=== PATIENT | female | born 1940 | race Caucasian/White ===

== ENCOUNTER 2018-08-19 14:11 | Inpatient (IN) | payer MEDICARE, OTHER ==
[2018-08-19 15:43] LABS: BASOPHILS 0.3 % (0-2); EOSINOPHILS 1.9 % (0-7); HEMATOCRIT 36.5 % (36.0-48.0); HEMOGLOBIN 12.3 g/dL (12-16); IMMATURE GRANULOCYTES 0.3 % (0-5); LYMPHOCYTES 16.1 % (15-50); MCH 32.4 pg (26.0-34.0); MCHC 33.7 g/dL (31.0-37.0); MCV 96.1 fL (80.0-100.0); MEAN PLATELET VOLUME 10.4 fL (7.4-10.4); MONOCYTES 5.9 % (2-11); NEUTROPHILS 75.5 % (40-80); RDW 12.2 % (11.5-14.5); WBC 10.4 10x3/uL (4.8-10.8)
[2018-08-19 15:51] LABS: PLATELET COUNT 213 10x3/uL (130-400)
[2018-08-19 16:05] LABS: APTT 28.1 SECONDS (22.8-39.4); INR 1.08 (0.85-1.17); PROTIME 13.5 SECONDS (11.6-15.0)
[2018-08-19 16:06] LABS: ALBUMIN 3.5 g/dL (3.4-5.0); ANION GAP 12.1 mmol/L (8-16); BILIRUBIN - TOTAL 0.37 mg/dL (0.2-1.3); CALCIUM 8.6 mg/dL (8.5-10.1); CARBON DIOXIDE 27.8 mmol/L (21.0-32.0); CREATININE - SERUM 0.8 mg/dL (0.6-1.3); POTASSIUM - SERUM 3.9 mmol/L (3.5-5.1); PROTEIN - SERUM 7.2 g/dL (6.4-8.2)
--- NOTE | 2018-08-19 17:30 | MORECARE ---
CASE MANAGEMENT DISCHARGE SUMMARY PATIENT: JASMINE MANLEY UNIT: [id number] ADM DATE: 08/19/18 AGE: 78 : 39 SEX: F ROOM/BED: D.2212 AUTHOR: KATHLEEN REEVES PHYSICIAN: REFERRING PHYSICIAN: SARA PEREZ MD DATE OF SERVICE: 08/19/18 Discharge Plan Patient Name: JASMINE MANLEY Facility: [facility]:[place] : 1940 Planned Disposition: Home Anticipated Discharge Date: 08/23/18 Discharge Date: Expected LOS: 4 Initial Reviewer: [email or web address] Initial Review Date: 08/19/2018 Generated: 08/19/18 6:29 pm DCP- Discharge Planning Updated by [email or web address]: Allyssa Mcnulty on 08/19/18 4:[address] Patient Name: JASMINE MANLEY Admission Status: ER Accout number: [id number] Admission Date: 08-19-2018 : 1940 Admission Diagnosis: Attending: SARA PEREZ Current LOS: 1 Anticipated DC Date: 08-23-2018 Planned Disposition: Home Primary Insurance: MEDICARE A & B Discharge Planning Comments: CM met with patient and her friend Kirsty to complete initial dc planning assessment. CM educated patient on the CM role and verbal consent given by patient to complete assessment. Patient lives at home and reports she is independent in her care. She reports her sister lives with her and her sister requires 24/7 caregivers. She also has PT that comes and works with her sister. At discharge patient plans to return home if she is able and feels this is a safe discharge. She stated she may need PT but she will see how she does post op. She also does not have any assisted devises for ambulation and may require a walker at dc. CM discussed availability of home health, rehab services, and medical equipment. Patient unsure of known discharge needs at this time. CM will continue to follow and will assist as needed with dc plans/needs. Burial Needs Salesperson: Allyssa Mcnulty RN, [facility] DCPIA - Discharge Planning Initial Assessment Updated by [email or web address]: Allyssa Mcnulty on 08/19/18 5:24 pm * Is the patient Alert and Oriented? Yes * PCP Dr. Perez * Pharmacy [facility] on [facility] * Preadmission Environment Home with Family * ADLs Independent * Equipment None * List name and contact numbers for known caregivers / representatives who currently or will assist patient after discharge: Kirsty Thurman - [place] - [phone] * Verbal permission to speak to the caregivers and representatives has been obtained from the patient. Yes * Community resources currently utilized None * Additional services required to return to the preadmission environment? Yes * Can the patient safely return to the preadmission environment? Yes * Has this patient been hospitalized within the prior 30 days at any hospital? No Patient Name: JASMINE MANLEY Page [id number] at 1730 All edits/amendments must be made on the electronic document DICTATION DATE: 08/19/181728 HAIRSPRING II INSPECTOR: ERMA 08/19/181728 RPT#: [id number] DC DATE: STATUS: ADM IN [facility] [address] [place] [address] END OF REPORT
[2018-08-19 18:09] VITALS: BP 140/66; BMI 25.0
[2018-08-19 20:00] VITALS: BP 120/57
[2018-08-20] VITALS (12 sets, daily range): BP systolic 92–128; BP diastolic 46–68
[2018-08-21] VITALS: BP 131/64
[2018-08-21 03:00] VITALS: BP 128/60
[2018-08-21 09:08] VITALS: BP 122/71
[2018-08-21 12:18] VITALS: BP 99/63
[2018-08-21 17:06] VITALS: BP 121/68
[2018-08-21 20:00] VITALS: BP 108/67
[2018-08-22] VITALS: BP 100/51
[2018-08-22 03:00] VITALS: BP 139/69
[2018-08-22 08:46] VITALS: BP 141/68
[2018-08-22 13:17] VITALS: BP 112/63
[2018-08-22 16:47] VITALS: BP 138/74
[2018-08-22 21:01] VITALS: BP 127/63
[2018-08-23 01:05] VITALS: BP 148/60
[2018-08-23 05:37] VITALS: BP 124/70
[2018-08-23 05:39] LABS: BASOPHILS 0.3 % (0-2); HEMATOCRIT 27.9 % (36.0-48.0); HEMOGLOBIN 9.7 g/dL (12-16); IMMATURE GRANULOCYTES 0.1 % (0-5); LYMPHOCYTES 32.4 % (15-50); MCH 32.3 pg (26.0-34.0); MCHC 34.8 g/dL (31.0-37.0); MEAN PLATELET VOLUME 10.4 fL (7.4-10.4); MONOCYTES 9.5 % (2-11); NEUTROPHILS 54.7 % (40-80); PLATELET COUNT 197 10x3/uL (130-400); RDW 12.1 % (11.5-14.5); WBC 6.7 10x3/uL (4.8-10.8)
[2018-08-23 08:57] VITALS: BP 134/68
[2018-08-23 17:21] VITALS: BP 111/61
[2018-08-23 17:38] VITALS: BP 127/68
[2018-08-23 22:01] VITALS: BP 107/63
[2018-08-24 05:09] VITALS: BP 135/79
[2018-08-24] MEDS ORDERED: HALDOL5 MG/ML IM (07:57)
[2018-08-24 09:23] VITALS: BP 134/68
--- NOTE | 2018-08-24 12:24 | MORECARE ---
CASE MANAGEMENT DISCHARGE SUMMARY PATIENT: JASMINE MANLEY UNIT: [id number] ADM DATE: 08/19/18 AGE: 78 : 39 SEX: F ROOM/BED: D.2214 AUTHOR: KATHLEEN REEVES PHYSICIAN: REFERRING PHYSICIAN: SARA PEREZ MD DATE OF SERVICE: 08/24/18 Discharge Plan Patient Name: JASMINE MANLEY Facility: [facility]:[place] : 1940 Planned Disposition: Home Anticipated Discharge Date: 08/23/18 Discharge Date: Expected LOS: 4 Initial Reviewer: [email or web address] Initial Review Date: 08/19/2018 Generated: 08/24/18 1:24 pm Comments DCP- Discharge Planning Updated by [email or web address]: Linda Quintero on 08/24/18 11:[address] PATIENT WILL BE DISCHARGING TO INPATIENT REHAB AT [facility] TODAY. IMM SERVED AND EXPLAINED DCP- Discharge Planning Updated by [email or web address]: Allyssa Mcnulty on 08/19/18 4:[address] Patient Name: JASMINE MANLEY Admission Status: ER Accout number: [id number] Admission Date: 08-19-2018 : 1940 Admission Diagnosis: Attending: SARA PEREZ Current LOS: 1 Anticipated DC Date: 08-23-2018 Planned Disposition: Home Primary Insurance: MEDICARE A & B Discharge Planning Comments: CM met with patient and her friend Kirsty to complete initial dc planning assessment. CM educated patient on the CM role and verbal consent given by patient to complete assessment. Patient lives at home and reports she is independent in her care. She reports her sister lives with her and her sister requires 24/7 caregivers. She also has PT that comes and works with her sister. At discharge patient plans to return home if she is able and feels this is a safe discharge. She stated she may need PT but she will see how she does post op. She also does not have any assisted devises for ambulation and may require a walker at dc. CM discussed availability of home health, rehab services, and medical equipment. Patient unsure of known discharge needs at this time. CM will continue to follow and will assist as needed with dc plans/needs. Pinion Staker: Allyssa Mcnulty RN, [facility] DCPIA - Discharge Planning Initial Assessment Updated by [email or web address]: Allyssa Mcnulty on 08/19/18 5:24 pm * Is the patient Alert and Oriented? Yes * PCP Dr. Perez * Pharmacy [facility] on [facility] * Preadmission Environment Home with Family * ADLs Independent * Equipment None * List name and contact numbers for known caregivers / representatives who currently or will assist patient after discharge: Kirsty Thurman [facility] - [phone] * Verbal permission to speak to the caregivers and representatives has been obtained from the patient. Yes * Community resources currently utilized None * Additional services required to return to the preadmission environment? Yes * Can the patient safely return to the preadmission environment? Yes * Has this patient been hospitalized within the prior 30 days at any hospital? No Coverage Notice Reviewer: [id number] Sabrina Quintero Notice Issued Date-Time: 08/24/2018 12:15 Notice Type: IM Discharge Notice Notice Delivered To: Patient Relationship to Patient: [employer] Specialist Name: Delivery Method: HAND - Hand Delivered Shruthi Days: Prior Verbal Notification: Recipient Understood Notice: Yes Recipient Signature: Yes Med Rec Note Co-signed by Attending: Coverage Notice Comment: Last DP export: 08/19/18 4:29 p Patient Name: JASMINE MANLEY Page [id number] at 1224 All edits/amendments must be made on the electronic document DICTATION DATE: 08/24/181223 OPERATING ROOM AIDE: ERMA 08/24/18 1224 RPT#: [id number] DC DATE: STATUS: ADM IN [facility] [address] [place] [address] END OF REPORT
[2018-08-24 14:17] VITALS: BP 164/84
[2018-08-24] MEDS ORDERED: HYDROCODON-ACE1 EAC7 PO (15:33)
--- NOTE | 2018-08-24 15:43 | MORECARE ---
CASE MANAGEMENT DISCHARGE SUMMARY PATIENT: ARIADNA MANLEY UNIT: [id number] ADM DATE: 08/19/18 AGE: 78 : 39 SEX: F ROOM/BED: D.2214 AUTHOR: LEANDRO,DOC PHYSICIAN: REFERRING PHYSICIAN: SARA PEREZ MD DATE OF SERVICE: 08/24/18 Discharge Plan Patient Name: ARIADNA MANLEY Facility: [facility]:[place] : 1940 Planned Disposition: Home Anticipated Discharge Date: 08/23/18 Discharge Date: Expected LOS: 4 Initial Reviewer: [email or web address] Initial Review Date: 08/19/2018 Generated: 08/24/18 4:43 pm DCP- Discharge Planning Updated by [email or web address]: Linda Quintero on 08/24/18 2:[address] CM received a call from patient's nephew Nacho Johnson ([phone]) He was concerned about his aunt and his mother. His mother and aunt live together and have for a long time. His mother requires 24 care and he has hired them to care for HIS mother that is paid for out of her trust. He stated that one of his mothers care takers had made the comment about getting a bed to home for his aunt and it raised more red flags. Apparently there has/was fraud going on at the bank which has lead for him to move both his mother and aunt to [place] where he lives to an assisted living. The plan was to move them September 07, but his aunt broke her hip and is now things have been delayed. After multiple examples of questionable behavior he asked if I could call Mónica Braxton to ask where she received the order for the home DME. I called Mónica & she was in the patient's room. I met with her in the presence of the patient. Mónica introduce herself to me at Ariadna's niece and referred to the patient as Aunt Ariadna, then she corrected herself and stated that she was her adopted niece. She stated that she knew her when she was 10 years old & that was her aunt. She stated that she is Petra's (Ariadna's sister) theology professor she works 13 hours a day 5 days a week. Kirsty Thurman & Allyssa Greene are the PM caretakers and she just fired the weekend one, so now she does that too. She stated that Ariadna's is not and does not have any children. Petra is the next of kin then Clayton (her nephew) I asked Mónica where she lived and she stated that she had just moved yesterday to [address] [place] [address] [employer] to a 4 bedroom house, so she could get them to come live with her. Mónica stated that there has been landlord issues that has put Ariadna under stress & Clayton wants to move then to an assisted living, but he does not know what they need. She hopes that they could move into with her and that is why she went ahead and purchased a 4 bedroom home. I explained the plan of care with both the patient and Mónica about inpatient rehab. Clayton is concerned about his aunt and his mother. I called Fern, Rachel, & Alvina of the above and they know to call Clayton with any discharge planning needs. I gave them Clayton's number. CM will continue to follow and assist with DC planning DCP- Discharge Planning Updated by [email or web address]: Linda Quintero on 08/24/18 11:[address] PATIENT WILL BE DISCHARGING TO INPATIENT REHAB AT [facility] TODAY. IMM SERVED AND EXPLAINED DCP- Discharge Planning Updated by [id number]: Allyssa Mcnulty on 08/19/18 4:[address] Patient Name: ARIADNA MANLEY Admission Status: ER Accout number: [id number] Admission Date: 08-19-2018 : 1940 Admission Diagnosis: Attending: SARA PEREZ Current LOS: 1 Anticipated DC Date: 08-23-2018 Planned Disposition: Home Primary Insurance: MEDICARE A & B Discharge Planning Comments: CM met with patient and her friend Kirsty to complete initial dc planning assessment. CM educated patient on the CM role and verbal consent given by patient to complete assessment. Patient lives at home and reports she is independent in her care. She reports her sister lives with her and her sister requires 24/7 caregivers. She also has PT that comes and works with her sister. At discharge patient plans to return home if she is able and feels this is a safe discharge. She stated she may need PT but she will see how she does post op. She also does not have any assisted devises for ambulation and may require a walker at dc. CM discussed availability of home health, rehab services, and medical equipment. Patient unsure of known discharge needs at this time. CM will continue to follow and will assist as needed with dc plans/needs. Site Worker: Allyssa Mcnulty RN, [facility] DCPIA - Discharge Planning Initial Assessment Updated by [id number]: Allyssa Mcnulty on 08/19/18 5:24 pm * Is the patient Alert and Oriented? Yes * PCP Dr. Perez * Pharmacy [facility] on [facility] * Preadmission Environment Home with Family * ADLs Independent * Equipment None * List name and contact numbers for known caregivers / representatives who currently or will assist patient after discharge: Kirstyklaudia Thurman - [place] - [phone] * Verbal permission to speak to the caregivers and representatives has been obtained from the patient. Yes * Community resources currently utilized None * Additional services required to return to the preadmission environment? Yes * Can the patient safely return to the preadmission environment? Yes * Has this patient been hospitalized within the prior 30 days at any hospital? No Coverage Notice Reviewer: [email or web address] Sabrina Quintero Notice Issued Date-Time: 08/24/2018 12:15 Notice Type: IM Discharge Notice Notice Delivered To: Patient Relationship to Patient: Mental Health Advanced Practice Nurse Name: Delivery Method: HAND - Hand Delivered Shruthi Days: Prior Verbal Notification: Recipient Understood Notice: Yes Recipient Signature: Yes Med Rec Note Co-signed by Attending: Coverage Notice Comment: Last DP export: 08/24/18 11:24 a Patient Name: ARIADNA MANLEY Page [id number] at 1543 All edits/amendments must be made on the electronic document DICTATION DATE: 08/24/181541 EXPORT TRAFFIC DEPARTMENT MANAGER: ERMA 08/24/181541 RPT#: [id number] DATE: STATUS: ADM IN [facility] [address] [place] [address] END OF REPORT
--- NOTE | 2018-08-25 16:27 | MORECARE ---
CASE MANAGEMENT DISCHARGE SUMMARY PATIENT: ARIADNA MANLEY UNIT: [id number] ADM DATE: 08/19/18 AGE: 78 : 39 SEX: F ROOM/BED: D.2214 AUTHOR: LEANDRODOC PHYSICIAN: REFERRING PHYSICIAN: SARA PEREZ MD DATE OF SERVICE: 08/25/18 Discharge Plan Patient Name: ARIADNA MANLEY Facility: [facility]:[place] : 1940 Planned Disposition: Home Anticipated Discharge Date: 08/23/18 Discharge Date: 08/24/2018 Expected LOS: 4 Initial Reviewer: [email or web address] Initial Review Date: 08/19/2018 Generated: 08/25/18 5:27 pm DCP- Discharge Planning Updated by [id number]: Linda Quintero on 08/24/18 2:[address] CM received a call from patient's nephew Nacho Johnson ([phone]) He was concerned about his aunt and his mother. His mother and aunt live together and have for a long time. His mother requires 24 care and he has hired them to care for HIS mother that is paid for out of her trust. He stated that one of his mothers care takers had made the comment about getting a bed to home for his aunt and it raised more red flags. Apparently there has/was fraud going on at the bank which has lead for him to move both his mother and aunt to [place] where he lives to an assisted living. The plan was to move them September 07, but his aunt broke her hip and is now things have been delayed. After multiple examples of questionable behavior he asked if I could call Mónica Braxton to ask where she received the order for the home DME. I called Mónica & she was in the patient's room. I met with her in the presence of the patient. Mónica introduce herself to me at Ariadna's niece and referred to the patient as Aunt Ariadna, then she corrected herself and stated that she was her adopted niece. She stated that she knew her when she was 10 years old & that was her aunt. She stated that she is Petra's (Ariadna's sister) drosser she works 13 hours a day 5 days a week. Kirsty Thurman & Allyssa Greene are the PM caretakers and she just fired the weekend one, so now she does that too. She stated that Ariadna's is not and does not have any children. Petra is the next of kin then Clayton (her nephew) I asked Mónica where she lived and she stated that she had just moved yesterday to [facility] [email or web address] to a 4 bedroom house, so she could get them to come live with her. Mónica stated that there has been landlord issues that has put Ariadna under stress & Clayton wants to move then to an assisted living, but he does not know what they need. She hopes that they could move into with her and that is why she went ahead and purchased a 4 bedroom home. I explained the plan of care with both the patient and Mónica about inpatient rehab. Clayton is concerned about his aunt and his mother. I called Fern, Rachel, & Alvina of the above and they know to call Clayton with any discharge planning needs. I gave them Clayton's number. CM will continue to follow and assist with DC planning DCP- Discharge Planning Updated by [id number]: Linda Quintero on 08/24/18 11:[address] PATIENT WILL BE DISCHARGING TO INPATIENT REHAB AT [facility] TODAY. IMM SERVED AND EXPLAINED DCP- Discharge Planning Updated by [email or web address]: Allyssa Mcnulty on 08/19/18 4:[address] Patient Name: ARIADNA MANLEY Admission Status: Accout number: [id number] Admission Date: 08-19-2018 : 1940 Admission Diagnosis: Attending: SARA PEREZ Current LOS: 1 Anticipated DC Date: 08-23-2018 Planned Disposition: Home Primary Insurance: MEDICARE A & B Discharge Planning Comments: CM met with patient and her friend Kirsty to complete initial dc planning assessment. CM educated patient on the CM role and verbal consent given by patient to complete assessment. Patient lives at home and reports she is independent in her care. She reports her sister lives with her and her sister requires 24/7 caregivers. She also has PT that comes and works with her sister. At discharge patient plans to return home if she is able and feels this is a safe discharge. She stated she may need PT but she will see how she does post op. She also does not have any assisted devises for ambulation and may require a walker at dc. CM discussed availability of home health, rehab services, and medical equipment. Patient unsure of known discharge needs at this time. CM will continue to follow and will assist as needed with dc plans/needs. Rn Ostomy: Allyssa Mcnulty RN, [facility] DCPIA - Discharge Planning Initial Assessment Updated by [id number]: Allyssa Mcnulty on 08/19/18 5:24 pm * Is the patient Alert and Oriented? Yes * PCP Dr. Perez * Pharmacy [facility] on [facility]/[place] * Preadmission Environment Home with Family * ADLs Independent * Equipment None * List name and contact numbers for known caregivers / representatives who currently or will assist patient after discharge: Kirstyklaudia Thurman - [place] - [phone] * Verbal permission to speak to the caregivers and representatives has been obtained from the patient. Yes * Community resources currently utilized None * Additional services required to return to the preadmission environment? Yes * Can the patient safely return to the preadmission environment? Yes * Has this patient been hospitalized within the prior 30 days at any hospital? No Coverage Notice Reviewer: [id number] Sabrina Quintero Notice Issued Date-Time: 08/24/2018 12:15 Notice Type: IM Discharge Notice Notice Delivered To: Patient Relationship to Patient: Child Nutrition Manager Name: Delivery Method: HAND - Hand Delivered Shruthi Days: Prior Verbal Notification: Recipient Understood Notice: Yes Recipient Signature: Yes Med Rec Note Co-signed by Attending: Coverage Notice Comment: Last DP export: 08/24/18 2:43 p Patient Name: ARIADNA MANLEY Page [id number] at 1627 All edits/amendments must be made on the electronic document DICTATION DATE: 08/25/181626 POWDER CORE TESTER: ERMA 08/25/181626 RPT#: [id number] DC DATE:08/24/18 STATUS: DIS IN [place] [address] [place] [address] END OF REPORT
== END 2018-08-24 16:37 | DRG 481 ==
LOC: D.ER 14:11 → D.EDHOLD 16:59 → D.MS 17:15
PROVIDERS: Emergency Medicine; Family Medicine; Orthopaedic Surgery; ADMIT Family Medicine
PROC: 0QH706Z Insertion of Intramedullary Internal Fixation Device into Left Upper Femur, Open Approach (ICD-10-PCS; principal; 2018-08-20 09:00)
DX: S72.142A Displaced intertrochanteric fracture of left femur, initial encounter for closed fracture (principal); F05 Delirium due to known physiological condition

== ENCOUNTER 2018-08-24 14:57 | Inpatient (IN) | payer MEDICARE, OTHER ==
[~2018-08-24] VITALS: Ht 167.6 cm; Wt 70.3 kg
[~2018-08-24 14:57] MED LIST: HALDOL5 MG/ML IM
[2018-08-24] MEDS ORDERED: HYDROCODON-ACE1 EAC7 PO (15:33)
--- NOTE | 2018-08-24 16:43 | NUR ---
ADMITTED TO ROOM 1108A. ARRIVED IN . MAX ASSIST WITH 2 PERSON TRANSFER. INCONT BM. CLEANED UP. SKIN CDI. L HIP SURGERY INCISION WITH JOBY X 2 SMALL INCISIONS. DRESSING INTACT. ALERT WITH CONFUSION. DOES NOT FOLLOW COMMANDS WELL. BED ALARM PLACED. CL IN REACH.
[2018-08-24 16:54] VITALS: BP 147/73
[2018-08-24 19:00] VITALS: BP 147/73
--- NOTE | 2018-08-24 19:00 | NUR ---
PATIENT IS LAYING IN HER BED. SHE IS CONFUSED AND SETTING OFF THE BED ALARM. PATIENT REPOSITIONED TO THE MIDDLE OF THE BED, PULLED UP, CLEANED UP AND FULL LINEN CHANGE. BED LEFT IN LOW POSITION WITH SIDE RAILS UP X2, BED ALARM ACTIVATED AND CALL LIGHT IN REACH.
[2018-08-25 08:00] VITALS: BP 128/72
[2018-08-25 09:01] VITALS: Ht 167.6 cm; Wt 70.3 kg
--- NOTE | 2018-08-25 16:46 | NUR ---
SPOKE WITH PATIENT WILLIAN RODAS, AND HE WOULD LIKE NO VISITORS EXCEPT PATIENT PENTECOSTALISM FRIENDS ( LIST GIVEN TO NURSE). THE "CARE GIVERS" ARE NOT TO VISIT WITH THE PATIENT AT ALL. NEPHASHOK IS TRAVELING TO [place] TODAY HIS MOTHER IS AT [facility]. POLICE ARE INVOLVED WITH THE CARE GIVERS. WILL CONTINUE TO FOLLOW WITH PATIENT.
--- NOTE | 2018-08-25 18:42 | NUR ---
PT SITTING UP IN WHEELCHAIR, DENIES NEEDS. WCTM.
--- NOTE | 2018-08-25 19:36 | NUR ---
THE PATIENT WAS RETURNING FROM THE RESTROOM WHEN STAFF ENTERED HER ROOM. BED IS IN THE LOW POSITION WITH SIDERAILS X2 AND CALL LIGHT WITHIN REACH. THE PATIENT WAS EDUCATED ON THE USE OF A CALL LIGHT AND DEMONSTRATES UNDERSTANDING VIA TEACHBACK METHOD. THE PATIENT APPEARS COMFORTABLE WITH NO QUESTIONS OR CONCERNS AT THIS TIME.
[2018-08-25 19:48] VITALS: BP 108/55
--- NOTE | 2018-08-26 02:31 | NUR ---
THE PATIENT APPEARS TO BE SLEEPING COMFORTABLY. BED IS IN THE LOW POSITION WITH SIDERAILS X2 AND CALL LIGHT WITHIN REACH.
[2018-08-26 05:53] LABS: BASOPHILS 0.4 % (0-2); EOSINOPHILS 3.8 % (0-7); HEMATOCRIT 26.5 % (36.0-48.0); HEMOGLOBIN 9.3 g/dL (12-16); IMMATURE GRANULOCYTES 0.5 % (0-5); LYMPHOCYTES 28.1 % (15-50); MCH 33.3 pg (26.0-34.0); MCHC 35.1 g/dL (31.0-37.0); MEAN PLATELET VOLUME 10.6 fL (7.4-10.4); MONOCYTES 9.5 % (2-11); NEUTROPHILS 57.7 % (40-80); PLATELET COUNT 150 10x3/uL (130-400); RBC 2.79 10x6/uL (4.00-5.40); RDW 12.9 % (11.5-14.5); WBC 7.7 10x3/uL (4.8-10.8)
[2018-08-26 06:46] LABS: CALC OSMOLALITY 287 mosm/kg (275-300); CHLORIDE - SERUM 106 mmol/L (98-107); CREATININE - SERUM 0.6 mg/dL (0.6-1.3); GLUCOSE 91 mg/dL (74-106); POTASSIUM - SERUM 3.2 mmol/L (3.5-5.1); SODIUM 144 mmol/L (136-145); UREA NITROGEN 14 mg/dL (7-18); eGFR NON AFRICAN AMERICAN > 90 mL/min (90-120)
[2018-08-26 08:14] VITALS: BP 97/56
--- NOTE | 2018-08-26 08:15 | NUR ---
PATIENT SITTING UP IN WHEELCHAIR TO EAT BREAKFAST. CHAIR ALARM ON. CALL LIGHT WITHIN REACH. VOICES NO NEEDS. DR. Maryellen GARZA INTO SEE PATIENT. NEW ORDERS RECEIVED. WILL CONTINUE WITH PLAN OF CARE
--- NOTE | 2018-08-26 10:30 | NUR ---
PATIENT IN REHAB ROOM WORKING WITH PHYSICAL THERAPIST. DENIES ANY PAIN/DISC AT THIS TIME.
--- NOTE | 2018-08-26 14:13 | NUR ---
PATIENT SITTING UP IN WHEELCHAIR IN ROOM. VISITING WITH OLD SCHOOL FRIENDS IN ROOM. CALL LIGHT WITHIN REACH
--- NOTE | 2018-08-26 14:37 | NUR ---
SPEECH THERAPIST WORKING WITH PATIENT. DIET CHANGED FROM HONEY THICK TO REGULAR THIN LIQUID DIET. REMAINS MECHANICAL SOFT.
--- NOTE | 2018-08-26 16:27 | NUR ---
PATIENT HELPED INTO BATHROOM. MIN ASST OF ONE
--- NOTE | 2018-08-26 19:00 | NUR ---
PATIENT IS RESTING IN HER BED. SHE DENIES ANY NEEDS. HER BED IS DOWN LOW WITH SIDE RAILS UP X2. BED ALARM ACTIVATED AND CALL LIGHT IN REACH.
[2018-08-26 20:00] VITALS: BP 112/52
--- NOTE | 2018-08-27 | NUR ---
PATIENT IS SLEEPING. BED IS DOWN LOW WITH SIDE RAILS UP X2. CALL LIGHT IS IN REACH. BED ALARM IS ACTIVATED.
--- NOTE | 2018-08-27 04:07 | NUR ---
PATIENT REPOSITIONED FOR COMFORT. BED IS DOWN LOW WITH SIDE RAILS UP X2. BED ALARM ACTIVATED AND CALL LIGHT IN REACH.
[2018-08-27 07:11] LABS: CALC OSMOLALITY 287 mosm/kg (275-300); CALCIUM 8.2 mg/dL (8.5-10.1); CARBON DIOXIDE 28.8 mmol/L (21.0-32.0); CHLORIDE - SERUM 107 mmol/L (98-107); CREATININE - SERUM 0.6 mg/dL (0.6-1.3); GLUCOSE 102 mg/dL (74-106); POTASSIUM - SERUM 3.5 mmol/L (3.5-5.1); SODIUM 145 mmol/L (136-145); UREA NITROGEN 11 mg/dL (7-18); eGFR NON AFRICAN AMERICAN > 90 mL/min (90-120)
[2018-08-27 08:00] VITALS: BP 105/56
--- NOTE | 2018-08-27 08:00 | NUR ---
PATIENT IS ALERT/WITH CONFUSION NOTED. SITTING UP IN WHEELCHAIR AT BEDSIDE TO EAT BREAKFAST. CHAIR ALARM ON. CALL LIGHT WITHIN REACH. VOICES NO NEEDS AT THIS TIME. WILL CONTIUE WITH PLAN OF CARE.
--- NOTE | 2018-08-27 10:59 | NUR ---
PATIENT IN REHAB ROOM. WORKING WITH PHYSICAL THERAPIST. DENIES ANY PAIN/DISC AT THIS TIME.
--- NOTE | 2018-08-27 14:10 | NUR ---
SITTING UP IN WC.CL IN REACH.
--- NOTE | 2018-08-27 14:37 | NUR ---
PATIENT SELF PROPELLS WHEELCHAIR DOWN HALLWAY IN UNIT. CHAIR ALARM ON.
--- NOTE | 2018-08-27 18:13 | NUR ---
PATIENT UP FOR SUPPER. SITTING IN WHEELCHAIR. CHAIR ALARM ON. CALL LIGHT WITHIN REACH
--- NOTE | 2018-08-27 19:29 | NUR ---
AWAKE AND ALERT. NOTED CONFUSED, RESPIRATIONS UNLABORED. NO DISTRESS NOTED. INCISION TO LEFT HIP INTACT AND OPEN TO AIR. NO DISTRESS NOTED. CALL LIGHT IN REACH.
[2018-08-27 19:39] VITALS: BP 121/63
--- NOTE | 2018-08-28 01:40 | NUR ---
CONTINUES RESTING IN BED WITH NO DISTRESS NOTED. HAS BEEN UP TO BATHROOM X 2 THIS SHIFT SO FAR. BED ALARM IN PLACE. CALL LIGHT IN REACH.
--- NOTE | 2018-08-28 04:57 | NUR ---
QUIET HOURSS. RESTING IN BED WITH NO DISTRESS NOTED. CALL LIGHT IN REACH.
--- NOTE | 2018-08-28 09:25 | NUR ---
ADMININSTERED MORNING MEDS WHOLE WITHOUT DIFFICULTY. DENIES ANY NEEDS OR PAIN. RR EVEN AND UNLABORED. ABLE TO ANSWER ORIENTATION QUESTIONS WITHOUT DIFFICULTY. CALL LIGHT WITHIN REACH, CHAIR ALARM ON, W/C BRAKES LOCKED
--- NOTE | 2018-08-28 13:03 | NUR ---
SITTING UP IN W/C VISITING WITH NEPHEW. DENIES ANY NEEDS OR PAIN. CALL LIGHT WITHIN REACH, FALL PRECAUTIONS IN PLACE
--- NOTE | 2018-08-28 15:25 | NUR ---
RESTING QUIETLY IN BED AND WATCHING TV AT THIS TIME. NO COMPLAINTS. WILL CONTINUE TO MONITOR.
--- NOTE | 2018-08-28 19:20 | NUR ---
RESTING IN BED WITH EYES CLOSED AND RESPIRATIONS UNLABORED. NO DISTERSS NOTED. CALL LIGHT IN REACH.
[2018-08-28 20:00] VITALS: BP 134/66
--- NOTE | 2018-08-29 02:39 | NUR ---
CONTINUES RESTING QUIETLY WITH RESPIRATIONS UNLABORED. NO DISTRESS NOTED.
--- NOTE | 2018-08-29 05:57 | NUR ---
QUIET HOURS. RESTING IN BED WITH NO DISTRESS NOTED. NO CHANGES IN CONDITION THIS SHIFT.
[2018-08-29 06:47] LABS: CALC OSMOLALITY 277 mosm/kg (275-300); CALCIUM 8.3 mg/dL (8.5-10.1); CARBON DIOXIDE 32.7 mmol/L (21.0-32.0); CHLORIDE - SERUM 105 mmol/L (98-107); CREATININE - SERUM 0.7 mg/dL (0.6-1.3); GLUCOSE 102 mg/dL (74-106); POTASSIUM - SERUM 3.7 mmol/L (3.5-5.1); SODIUM 140 mmol/L (136-145); UREA NITROGEN 11 mg/dL (7-18); eGFR NON AFRICAN AMERICAN 85 mL/min (90-120)
[2018-08-29 07:04] LABS: BASOPHILS 0.1 % (0-2); EOSINOPHILS 1.6 % (0-7); HEMATOCRIT 29.9 % (36.0-48.0); HEMOGLOBIN 10.1 g/dL (12-16); IMMATURE GRANULOCYTES 0.1 % (0-5); LYMPHOCYTES 13.5 % (15-50); MCH 32.8 pg (26.0-34.0); MCHC 33.8 g/dL (31.0-37.0); MCV 97.1 fL (80.0-100.0); MEAN PLATELET VOLUME 9.7 fL (7.4-10.4); MONOCYTES 8.9 % (2-11); NEUTROPHILS 75.8 % (40-80); RBC 3.08 10x6/uL (4.00-5.40); RDW 13.7 % (11.5-14.5); WBC 8.7 10x3/uL (4.8-10.8)
[2018-08-29 07:07] LABS: PLATELET COUNT 268 10x3/uL (130-400)
[2018-08-29 07:55] VITALS: BP 111/71
--- NOTE | 2018-08-29 08:09 | NUR ---
PATIENT SITTING UP IN WHEELCHAIR THIS MORNING. AWAKE AND ALERT. NO COMPLAINTS OF PAIN OR DISCOMFORT.ATE 60% OF BRAKFAST. WILL CONTINUE TO MONITOR.
--- NOTE | 2018-08-29 11:06 | NUR ---
PATIENT ADMITTED TO REHAB FROM ACUTE FLOOR. DR. PEREZ IS HER PCP. DISCHARGE PLANS ARE FOR PATIENT TO DISCHARGE WITH HER NEPHEW BUT IF SHE IS UNABLE SHE WILL DISCHARGE TO SNF UNTIL ABLE TO TRAVEL. WILL CONTINUE TO FOLLOW WITH PATIENT.
--- NOTE | 2018-08-29 13:30 | NUR ---
PATIENT ASSISTED BACK TO BED. NOTED THAT COLOSTOMY BAG WAS LEAKING FROM THE OSTOMY SITE. PATIENT WAS CLEANED AND NEW BAG WAS PLACED. PATIENT RESTING COMFORTABLY AT THIS TIME.
--- NOTE | 2018-08-29 13:31 | NUR ---
Nutrition Follow Up: Pt stated that her appetite is good. RD encouraged pt to continue increasing po intake as able and to make staff aware of food preferences. Diet: Regular [facility] Soft PO Intake: 60% meal avg BM: 08/28/18 Meds and labs noted Rec continue regular diet with BUSINESS DEVELOPMENT recs for consistencies. RD following.
--- NOTE | 2018-08-29 15:59 | NUR ---
RECIEVED CALL FROM WILLIAN RODAS AND AT DISCHARGE FROM [facility] HE WOULD LIKE REFERRAL TO GO TO [facility] OR TO [facility]. WILL CONTNUE TO FOLLOW WITH PATIENT.
[2018-08-29 19:00] VITALS: BP 124/63
--- NOTE | 2018-08-29 19:37 | NUR ---
PT IN BED LOW POSITION, EYES OPEN, PLEASANT, NO NEEDS NOTED, FLUIDS AND CALL LIGHT WITHIN REACH
--- NOTE | 2018-08-29 23:41 | NUR ---
PT IN BED LOW POSITION, EYES CLOSED, AROUSES EASILY TO VOICE, NO NEEDS VOICED OR NOTED, FLUIDS AND CALL LIGHT WITHIN REACH
[2018-08-30 08:14] VITALS: BP 95/72
--- NOTE | 2018-08-30 12:24 | NUR ---
PARTICIPATED IN THERAPY THIS AM.
--- NOTE | 2018-08-30 13:03 | NUR ---
SHOWER GIVEN PER OT.
[2018-08-30 19:00] VITALS: BP 119/59
--- NOTE | 2018-08-30 19:02 | NUR ---
NO CHANGE IN ASSESSMENT. CONFUSED. BED ALARM ON. SAFETY REINFORCED.
--- NOTE | 2018-08-30 22:51 | NUR ---
PT IN BED LOW POSITION, EYES CLOSED, AROUSES EASILY TO VOICE, NO NEEDS NOTED, FLUIDS AND CALL LIGHT WITHIN REACH
[2018-08-31 07:33] LABS: CALC OSMOLALITY 278 mosm/kg (275-300); CALCIUM 9.1 mg/dL (8.5-10.1); CARBON DIOXIDE 29.1 mmol/L (21.0-32.0); CHLORIDE - SERUM 103 mmol/L (98-107); CREATININE - SERUM 0.7 mg/dL (0.6-1.3); GLUCOSE 109 mg/dL (74-106); SODIUM 140 mmol/L (136-145); UREA NITROGEN 11 mg/dL (7-18); eGFR NON AFRICAN AMERICAN 85 mL/min (90-120)
[2018-08-31 07:41] LABS: BASOPHILS 0.3 % (0-2); EOSINOPHILS 0.7 % (0-7); HEMATOCRIT 34.2 % (36.0-48.0); HEMOGLOBIN 11.9 g/dL (12-16); IMMATURE GRANULOCYTES 0.4 % (0-5); LYMPHOCYTES 18.5 % (15-50); MCH 33.9 pg (26.0-34.0); MCHC 34.8 g/dL (31.0-37.0); MCV 97.4 fL (80.0-100.0); MEAN PLATELET VOLUME 9.8 fL (7.4-10.4); MONOCYTES 5.9 % (2-11); NEUTROPHILS 74.2 % (40-80); PLATELET COUNT 290 10x3/uL (130-400); RBC 3.51 10x6/uL (4.00-5.40); RDW 14.1 % (11.5-14.5); WBC 11.4 10x3/uL (4.8-10.8)
[2018-08-31 08:18] VITALS: BP 109/63
--- NOTE | 2018-08-31 09:48 | NUR ---
ALERT AND CONFUSED. CHAIR ALARM PLACED ON PATIENT. DOING THERAPY AT THIS TIME.
--- NOTE | 2018-08-31 16:32 | NUR ---
NO CHANGE IN ASSESSMENT. CL IN REACH. NO C/O PAIN AT THIS TIME.
[2018-08-31 19:00] VITALS: BP 112/58
--- NOTE | 2018-08-31 19:39 | NUR ---
AWAKE AND ALERT. RESPIRATIONS UNLABORED. NOTED CONFUSED. SAFETY MEASURES IN PLACE. CALL LIGHT IN REACH.
--- NOTE | 2018-09-01 01:39 | NUR ---
RESTING IN BED WITH EYES CLOSED AND RESPIRATIONS UNLABORED. NO DISTRESS NOTED.
--- NOTE | 2018-09-01 05:08 | NUR ---
INCONTINENT OF URINE. BED CLOTHES AND LINENS CHANGED WITH INCONTINENCE CARE. NOW RESTING WITH NO DISTRESS NOTED. CALL LIGHT IN REACH.
[2018-09-01 08:12] VITALS: BP 125/66
--- NOTE | 2018-09-01 08:15 | NUR ---
PT RESTING IN BED WITH EYES OPEN CALL LIGHT IN REACH NO PROBLEMS WILL MONITER
--- NOTE | 2018-09-01 12:17 | NUR ---
SITTING UP IN WC EATING LUNCH.CL IN REACH.
[2018-09-01 17:28] LABS: APPEARANCE SL CLDY (CLEAR); BILIRUBIN NEGATIVE (NEGATIVE); COLOR YELLOW (YELLOW); GLUCOSE NEGATIVE (NEGATIVE); KETONE NEGATIVE (NEGATIVE); NITRITE NEGATIVE (NEGATIVE); PROTEIN NEGATIVE (NEGATIVE); UROBILINOGEN NORMAL (NORMAL)
[2018-09-01 17:30] LABS: BACTERIA MANY /hpf (NONE SEEN); EPITHELIAL CELLS 0-5 /hpf (0-5); RED CELLS - URINE 0-5 /hpf (0-5)
[2018-09-01 17:35] LABS: UDS - AMPHET NEGATIVE QUAL (NEGATIVE); UDS - BARB NEGATIVE QUAL (NEGATIVE); UDS - BENZO NEGATIVE QUAL (NEGATIVE); UDS - COCAINE NEGATIVE QUAL (NEGATIVE); UDS - OPIATE NEGATIVE QUAL (NEGATIVE); UDS - PCP NEGATIVE QUAL (NEGATIVE); UDS - THC NEGATIVE QUAL (NEGATIVE)
--- NOTE | 2018-09-01 18:25 | NUR ---
PT RESTING IN BED WITH EYES OPEN CALL LIGHT IN REACH WILL MONITER
[2018-09-01 19:36] VITALS: BP 112/62
--- NOTE | 2018-09-01 19:44 | NUR ---
RESTING IN BED WITH RESPIRATIONS UNLABORED. AWAKENS EASILY. NO DISTRESS NOTED. CALL LIGHT IN REACH.
--- NOTE | 2018-09-02 04:55 | NUR ---
QUIET HOURS. HAS BEEN UP TO BATHROOM TWICE THIS SHIFT. NO ACUTE CHANGES IN CONDITION THIS SHIFT. NO DISTRESS NOTED.
[2018-09-02 07:03] LABS: CALC OSMOLALITY 277 mosm/kg (275-300); CALCIUM 8.9 mg/dL (8.5-10.1); CARBON DIOXIDE 27.9 mmol/L (21.0-32.0); CHLORIDE - SERUM 103 mmol/L (98-107); CREATININE - SERUM 0.7 mg/dL (0.6-1.3); GLUCOSE 107 mg/dL (74-106); POTASSIUM - SERUM 3.9 mmol/L (3.5-5.1); SODIUM 139 mmol/L (136-145); UREA NITROGEN 12 mg/dL (7-18); eGFR NON AFRICAN AMERICAN 85 mL/min (90-120)
[2018-09-02 07:18] LABS: BASOPHILS 0.2 % (0-2); EOSINOPHILS 1.2 % (0-7); HEMATOCRIT 32.7 % (36.0-48.0); IMMATURE GRANULOCYTES 0.2 % (0-5); LYMPHOCYTES 16.7 % (15-50); MCH 32.9 pg (26.0-34.0); MCHC 33.6 g/dL (31.0-37.0); MCV 97.9 fL (80.0-100.0); MEAN PLATELET VOLUME 10.2 fL (7.4-10.4); MONOCYTES 6.8 % (2-11); NEUTROPHILS 74.9 % (40-80); PLATELET COUNT 291 10x3/uL (130-400); RBC 3.34 10x6/uL (4.00-5.40); RDW 14.1 % (11.5-14.5)
[2018-09-02 07:39] LABS: WBC 8.5 10x3/uL (4.8-10.8)
[2018-09-02 08:00] VITALS: BP 124/68
--- NOTE | 2018-09-02 08:13 | NUR ---
PATIENT IS ALERT WITH CONFUSION. SITTING UP IN WHEELCHAIR TO EAT BREAKFAST. CHAIR ALARM ON. CALL LIGHT WITHIN REACH. VOICES NO NEEDS. WILL CONTINUE WITH PLAN OF CARE
--- NOTE | 2018-09-02 08:30 | NUR ---
DR Maryellen GARZA INTO SEE PATIENT. NEW ORDERS RECEIVED
--- NOTE | 2018-09-02 09:25 | NUR ---
PATIENT IN REHAB ROOM. WORKING WITH OCCUPATIONAL THERAPIST. DENIES ANY PAIN/DISC AT THIS TIME
--- NOTE | 2018-09-02 17:49 | NUR ---
PATIENT SITTING UP IN WHEELCHAIR AT BEDSIDE TO EAT SUPPER. BOX AND CHAIR ALARM ON. PATIENT DOES NOT ALWAY USE CALL LIGHT FOR NEEDS, EVEN THOUGH IT IS IN REACH
--- NOTE | 2018-09-02 18:31 | NUR ---
I have reviewed this patient and I concur with the Shift Assessment completed by the Licensed Practical Nurse today this shift.
--- NOTE | 2018-09-02 19:15 | NUR ---
ANSWERED CALL LIGHT AND ASSITED PATIENT BACK TO BED FROM WHEELCHAIR. PATIENT REPOSITIONED FOR COMFORT. CALL LIGHT IN REACH.
[2018-09-02 19:23] VITALS: BP 109/62
--- NOTE | 2018-09-02 23:03 | NUR ---
PATIENT RESTING QUIETLY LAYING IN SUPINE POSITION. HOB AT 30 DEGREES. RESPIRATIONS EVEN. NO S/S OF DISTRESS. SR UP X 2. BED IN LOWEST POSITION. BED ALARM ACTIVATED AND WORKING PROPERLY.
--- NOTE | 2018-09-03 02:37 | NUR ---
PATIENT RESTING QUIETLY IN SUPINE POSITION. HOB AT 30 DEGREES. RESPIRATIONS EVEN. NO S/S OF DISTRESS. SR UP X 2. BED IN LOWEST POSITION. CALL LIGHT IN REACH.
--- NOTE | 2018-09-03 07:23 | NUR ---
ALERT. NO C/O PAIN. RESP EVEN AND UNLABORED. CL IN REACH.
--- NOTE | 2018-09-03 07:25 | NUR ---
CHAIR ALARM ON. SITTING IN CHAIR.
[2018-09-03 08:26] VITALS: BP 109/59
--- NOTE | 2018-09-03 09:49 | NUR ---
SITTING IN WC. CHAIR ALARM ON X2.
--- NOTE | 2018-09-03 11:15 | NUR ---
PATIENT STATES BATHED PER OT THIS AM.
--- NOTE | 2018-09-03 12:47 | NUR ---
SITTING IN WC. CONFUSED. CHAIR ALARM ON.
--- NOTE | 2018-09-03 17:31 | NUR ---
EATING DINNER. NO C/O PAIN. NO CHANGE IN ASSESSMENT.
[2018-09-03 19:01] VITALS: BP 122/64
--- NOTE | 2018-09-03 19:01 | NUR ---
GREETED PATIENT AND INTRODUCED MYSELF. PATIENT IS LAYING IN BED IN SUPINE POSITION. VITAL SIGNS TAKEN. CALL LIGHT IN REACH.
--- NOTE | 2018-09-03 22:59 | NUR ---
PATIENT RESTING QUIETLY WITH EYES CLOSED LAYING IN SUPINE POSITION. HOB AT 30 DEGREES. RESPIRATIONS EVEN. NO S/S OF DISTRESS. SR UP X2. BED IN LOWEST POSITION. CALL LIGHT IN REACH.
[2018-09-04 07:40] VITALS: BP 99/62
--- NOTE | 2018-09-04 07:40 | NUR ---
ASSESSMENT AND VS COMPLETED.IS VERY CONFUSED,ORIENTED TO SELF ONLY.2 INCISIONS TI LEFT HIP WITH JOBY INTACT,HEALING WELL.WILL CONTINUE WITH CURRENT PLAN OF CARE.CL IN EASY REACH,BED IN LOW POSITION.
[2018-09-04 19:05] VITALS: BP 127/64
--- NOTE | 2018-09-04 19:05 | NUR ---
GREETED PATIENT AND INTRODUCED MYSELF. PATIENT IS LAYING IN BED IN SUPINE POSITION. DENIES ANY PAIN OR OTHER NEEDS AT THIS TIME. VITAL SIGNS OBTAINED. CALL LIGHT IN REACH.
--- NOTE | 2018-09-05 00:19 | NUR ---
PATIENT RESTING QUIETLY WITH EYES CLOSED LAYING IN SUPINE POSITION. HOB AT 30 DEGREES. RESPIRATIONS EVEN. NO S/S OF DISTRESS. SR UP X 2. BED IN LOWEST POSITION. CALL LIGHT IN REACH.
--- NOTE | 2018-09-05 03:00 | NUR ---
ASSISTED PATIENT TO BATHROOM USING WHEELCHAIR. PATIENT BACK TO BED AND REPOSITIONED FOR COMFORT. SR UP X 2. BED IN LOWEST POSITION. CALL LIGHT IN REACH
--- NOTE | 2018-09-05 05:01 | NUR ---
PATIENT AWAKE AND TRANSFERRED INTO WHEELCHAIR. PATIENT WATCHING TV AND DENIES ANY NEEDS AT THIS TIME. CALL LIGHT IN REACH.
[2018-09-05 06:39] LABS: CALCIUM 9.2 mg/dL (8.5-10.1); CARBON DIOXIDE 27.6 mmol/L (21.0-32.0); CREATININE - SERUM 0.8 mg/dL (0.6-1.3); POTASSIUM - SERUM 4.6 mmol/L (3.5-5.1)
[2018-09-05 06:55] LABS: HEMATOCRIT 35.7 % (36.0-48.0); HEMOGLOBIN 12.2 g/dL (12-16); MCH 34.3 pg (26.0-34.0); MCHC 34.2 g/dL (31.0-37.0); MCV 100.3 fL (80.0-100.0); MEAN PLATELET VOLUME 11.8 fL (7.4-10.4); PLATELET COUNT 274 10x3/uL (130-400); RBC 3.56 10x6/uL (4.00-5.40); RDW 14.5 % (11.5-14.5); WBC 7.7 10x3/uL (4.8-10.8)
[2018-09-05 08:00] VITALS: BP 88/49
--- NOTE | 2018-09-05 08:00 | NUR ---
PATIENT IS ALERT WITH CONFUSION. SITTING UP AT BEDSIDE TO EAT BREAKFAST. BOX AND CHAIR ALARM ON. CALL LIGHT WITHIN REACH. PATIENT REMINDED TO USE CALL LIGHT FOR NEEDS. WILL CONTINUE WITH PLAN OF CARE
[2018-09-05 08:08] LABS: EOSINOPHILS 1 % (0-7); LYMPHOCYTES 21 % (15-50); MONOCYTES 6 % (2-11); NEUTROPHILS 67 % (40-80); PLATELET ESTIMATE NORMAL
--- NOTE | 2018-09-05 09:27 | NUR ---
Nutrition follow up: Regular mechanical soft diet with 60% average po intake Pt reports she is eating as well as she does at home. Pt reports tolerating meals well. Pt reports no known weight loss. BM today Pt reports no nutritional requests at this time RD following per protocol
--- NOTE | 2018-09-05 10:12 | NUR ---
PATIENT IN REHAB ROOM. WORKING WITH PHYSICAL THERAPIST. DENIES ANY PAIN/DISC AT THIS TIME
--- NOTE | 2018-09-05 13:38 | NUR ---
DR CERDA CONSULTED FOR DIAG: DEMENTIA
--- NOTE | 2018-09-05 18:13 | NUR ---
PATIENT SITTING IN BED EATTING SUPPER. THIS NURSE HELPED PATIENT FILL OUT MENUE FOR TOMORROW
--- NOTE | 2018-09-05 22:02 | NUR ---
PT IN BED LOW POSITION, EYES CLOSED, BREATHING EVEN AND UNLABORED, AROUSES EASILY TO VOICE, NO IMMEDIATE NEEDS NOTED, FLUIDS AND CALL LIGHT WITHIN REACH
[2018-09-06 01:45] VITALS: BP 108/64
--- NOTE | 2018-09-06 03:03 | NUR ---
PT IN BED LOW POSITION, EYES CLOSED, BREATHING EVEN AND UNLABORED, AROUSES TO VOICE, NO NEEDS NOTED, FLUIDS AND CALL LIGHT WITHIN REACH
--- NOTE | 2018-09-06 07:34 | NUR ---
ALERT AND CONFUSED. BED/CHAIR ALARMS IN USE. CL IN REACH. RESP EVEN AND UNLABORED.
[2018-09-06 09:05] VITALS: BP 106/80
--- NOTE | 2018-09-06 11:27 | NUR ---
PARTICIPATING IN THERAPY THIS AM.
--- NOTE | 2018-09-06 13:15 | NUR ---
DC'D JOBY L LE X 2 INCISIONS WO DIFFICULTY.
--- NOTE | 2018-09-06 14:43 | NUR ---
PATIENT IS PROGRESSING WELL IN THEAPY. TENATIVE DISCHARGE DATE IS 09/09/18 TO POSSIBLE DISCHARGING TO [facility] [place] [facility]. WILL CONTINUE TO FOLLOW WITH PATIENT.
--- NOTE | 2018-09-06 15:03 | NUR ---
NO CHANGE IN ASSESSMENT. RESTING IN BED WITH BED ALARM ON. CL IN REACH.
--- NOTE | 2018-09-06 17:44 | NUR ---
NO CHANGE IN ASSESSMENT. EATING DINNER. BED ALARM ON. CL IN REACH.
--- NOTE | 2018-09-07 01:02 | NUR ---
PT IN BED LOW POSITION, EYES CLOSED, AROUSES EASILY TO VOICE, SAFETY ALERTS IN PLACE, TURNED ON AND IN WORKING ORDER, NO NEEDS NOTED, FLUIDS AND CALL LIGHT WITHIN REACH
[2018-09-07 02:11] VITALS: BP 116/58
[2018-09-07 07:41] LABS: CALC OSMOLALITY 269 mosm/kg (275-300); CALCIUM 9.1 mg/dL (8.5-10.1); CARBON DIOXIDE 26.4 mmol/L (21.0-32.0); CHLORIDE - SERUM 99 mmol/L (98-107); CREATININE - SERUM 0.7 mg/dL (0.6-1.3); GLUCOSE 109 mg/dL (74-106); SODIUM 135 mmol/L (136-145); UREA NITROGEN 10 mg/dL (7-18); eGFR NON AFRICAN AMERICAN 85 mL/min (90-120)
[2018-09-07 07:45] LABS: BASOPHILS 0.3 % (0-2); EOSINOPHILS 0.6 % (0-7); HEMOGLOBIN 12.8 g/dL (12-16); IMMATURE GRANULOCYTES 0.2 % (0-5); MCH 33.3 pg (26.0-34.0); MCHC 33.7 g/dL (31.0-37.0); MEAN PLATELET VOLUME 10.4 fL (7.4-10.4); MONOCYTES 10.5 % (2-11); NEUTROPHILS 62.4 % (40-80); PLATELET COUNT 279 10x3/uL (130-400); RBC 3.84 10x6/uL (4.00-5.40); RDW 14.1 % (11.5-14.5); WBC 6.5 10x3/uL (4.8-10.8)
--- NOTE | 2018-09-07 07:55 | NUR ---
ALERT AND CONFUSED. BED ALARM ON. RESP EVEN AND UNLABORED. NO DISTRESS NOTED.CL IN REACH.
[2018-09-07 08:00] VITALS: BP 99/61
--- NOTE | 2018-09-07 08:26 | RHP ---
PATIENT: JASMINE MANLEY MEDICAL RECORD: [id number] ACCOUNT: [id number] LOCATION:[id number] : 39 ADMISSION DATE: 08/24/18 REHABILITATION HISTORY AND PHYSICAL EXAMINATION POST ADMISSION PHYSICIAN EXAMINATION DATE OF ADMISSION: 08/24/2018 ADMITTING DIAGNOSIS: Left intertrochanteric hip fracture. HISTORY OF PRESENT ILLNESS: The patient is a 78-year-old female patient admitted to the inpatient rehab with a left intertrochanteric hip fracture. She arrived to the ED on 08/19/2018 after a fall. She reports that she had hair appointment, decided to go to [facility], she tried to step up on a step and fell backwards. On exam, she had tenderness to palpation over her hip region. X-ray showed a left intertrochanteric hip fracture. She was admitted for orthopedic surgery consult on 08/20/2018. She went to the OR for an ORIF. Her postop course was complicated by toe-touch weightbearing status. She has got blood loss anemia with an H&H of 9.7 and 17.9. She had hypoxia with sats of 91% on 2 liters. She ran a low-grade fever. She had some hypotension and she had some postop sundowning and agitation, requiring Haldol. Previously, she lived with her sister who is debilitated. She has a 24-hour caregiver. She did all the driving, shopping, cooking and cleaning. She was independent with ADLs and mobility without assistance device. Currently, she is mod-to-max assist for ADLs and mobility. She is toe-touch weightbearing on the left and has O2 on standby to maintain her sat of 92% or greater. She is motivated to regain her strength, so she can return home. BARRIERS TO DISCHARGE: At this time are toe-touch weightbearing status. She has 17 stairs to climb to get to the bedroom and she really does not have anybody to assist her and she has been requiring some supplemental O2. COMORBIDITIES: In this patient include status post ORIF, acute blood loss anemia, hypoxia, hypotension, falls, osteopenia and postop sundowners noted. PAST MEDICAL HISTORY: Significant for nothing in particular. PAST SURGICAL HISTORY: None. ALLERGIES: CODEINE. CURRENT MEDICATIONS: Just hydrocodone 5/325 one tab every 6 hours p.r.n. and Haldol p.r.n. agitation. HABITS: No current alcohol or tobacco use. FAMILY HISTORY: Noncontributory. SOCIAL HISTORY: The patient once again wants to return back home and get back to her prior level of functioning. REVIEW OF SYSTEMS: GENERAL: She does complain a little weakness and fatigue. HEENT: Denies cold, cough, or congestion. CARDIOVASCULAR: Denies chest pain. HISTORY AND PHYSICAL [id number] JASMINE MANLEY PHYSICAL EXAMINATION: VITAL SIGNS: Stable, afebrile. GENERAL: An elderly female, in no acute distress, alert upon exam. HEENT: Normocephalic and atraumatic. Mucosa moist. NECK: Supple. No lymphadenopathy. LUNGS: Clear at this time. No wheezing, rhonchi or rales. HEART: Regular rate and rhythm. No murmurs, rubs or gallops. ABDOMEN: Benign, nontender, nondistended. Positive bowel sounds times 4. EXTREMITIES: No clubbing, cyanosis or edema. Postop area to her hip looks normal. NEUROLOGIC: She does have some noted weakness. LABORATORY DATA: White count was 6.7, H&H 9.7 and 27.9 and platelet count was noted to be 197. Admit UA did show trace leukocyte esterase. Admit chemistry showed a sodium 139, potassium 3.9, BUN and creatinine of 14 and 0.8 and blood sugar was noted to be 110. ASSESSMENT: This is a 78-year-old female patient admitted to rehab with a working diagnosis status post open reduction and internal fixation of her left hip secondary to an intertrochanteric hip fracture. The patient has potential to make improvement. We instituted the following multidisciplinary therapies including but not limited to physical, occupational, respiratory, speech, nutritional services, prosthetics and orthotics. Given her complex medical condition and risks for more complications, rehabilitation services cannot be provided at a low level of care such a skilled nurse facility. PLAN: 1. Admit to [facility] for intensive inpatient therapy to include the following disciplines: A. Physical therapy to improve gait, all transfer skills and bed mobility to a modified independent level. B. Occupational therapy to a modified independent level. C. Case management to assist with discharge planning and placement options. D. Nutrition to assist with nutritional needs. E. Rehabilitation nursing to assist in monitoring the patient's underlying medical conditions and to assist with any type of bowel or bladder management. 2. The patient's current medication and medical care will be continued. 3. The patient will be placed on standard fall precautions. 4. The patient's estimated length of stay is approximately 7-10 days. 5. Discuss the patient's care team staff meeting this week. TRANSINT:[id number] Voice Confirmation ID: [id number] DOCUMENT ID: [id number] JENNIFER notes whether there has been none or any medical/functional change since admission: - No change since prescreen. JENNIFER attests patient continues to be appropriate for IRF: - COntinues to be appropriate. HISTORY AND PHYSICAL [id number] JASMINE MANLEY,SARA MOSCOSO MD at 0826 CC: [id number] DICTATION DATE: 08/25/18815 MULTI SHARE PROGRAM COORDINATOR: 08/25/18 1034 ADM IN [place] [id number] [place] [id number]
--- NOTE | 2018-09-07 12:27 | NUR ---
PARTICIPATED IN THERAPY THIS AM. UP IN EATING LUNCH AT THIS TIME.
[2018-09-07 15:50] VITALS: BP 130/54
--- NOTE | 2018-09-07 16:17 | NUR ---
NO CHANGE IN ASSESSMENT. RESTING WO C/O PAIN. CL IN REACH.
--- NOTE | 2018-09-07 16:38 | CN ---
PATIENT NAME:JASMINE MANLEY MEDICAL RECORD: [id number] : 38 LOCATION:[id number] ADMIT DATE: 08/24/18 ACCOUNT: [id number] CONSULTING PHYSICIAN: ALFRED CERDA MD REFERRING PHYSICIAN: SARA GARZA MD DATE OF CONSULTATION: 09/05/2018 PSYCHIATRIC CONSULTATION IDENTIFYING DATA: The patient is 78 years old and she is admitted to the rehab unit secondary to fractured hip. CHIEF COMPLAINT: None. HISTORY OF PRESENT ILLNESS: The patient is a very nice lady who is extremely cooperative. She is here receiving rehab services after apparently fracturing her hip when trying to step up onto a curb recently. She apparently has had some issues regarding her cognition here and I did see a consult was put in regarding dementia some days ago, but it is very difficult to evaluate a patient postoperatively and discern whether or not the confusion is related to the surgery and the acute illness or something underlying. I think she has cleared enough now to where I can give a reasonable opinion. The patient lives with her sister. She has never and has no children. She has no history of substance abuse and has no history of legal entanglements. She apparently has functioned reasonably well both socially and occupationally. MENTAL STATUS EXAMINATION: The patient is awake; alert; and oriented to person, place, time, and situation. Her mood is depressed. Her affect is constricted. Thought processes are circumstantial. Memory, concentration, and abstraction abilities are mildly impaired. She denies any active intent to harm herself or others as well as overt psychotic symptoms. 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 PLAN: At this time, the patient is probably in need of some assistance with making important decisions about her life. She tells me she and her sister are going to move to an assisted living facility in [place] in the coming weeks. That sounds like a good idea. She may very well have an early dementing process going on and probably would benefit from a low dose of a cholinesterase inhibitor, but I think it would be better if she gets that from her primary care physician rather than a psychiatrist since she was a little embarrassed to talk with me. I do not think there is any urgency about it. If she is slipping cognitively, it is not severe at this point and I think she can make reasonable informed consent decisions about her person and the state at this time. She does not require psychiatric followup and again a low dose of a cholinesterase inhibitor can be started by her primary care physician or after she moves to [place]. I would recommend neuro cognitive testing in a year, particularly if there are other concerns about significant slippage. TRANSINT:[id number] Voice Confirmation ID: [id number] DOCUMENT ID: [id number] CONSULT REPORT [id number] JASMINE MANLEY PETER MD at 1638 CC: [id number] DICTATION DATE: 09/05/18 1636 INSTRUCTOR MILITARY SCIENCE: 09/05/181957 ADM IN [facility] [address] [place] [address]
--- NOTE | 2018-09-07 19:30 | NUR ---
RESTING IN BED WITH EYES CLOSED AND RESPIRATIONS UNLABORED. NO DISTRESS NOTED. CALL LIGHT IN REACH.
--- NOTE | 2018-09-08 01:54 | NUR ---
SLEEPING WITH RESPIRATIONS UNLABORED. NO DISTRESS NOTED. CALL LIGHT IN REACH.
--- NOTE | 2018-09-08 05:05 | NUR ---
QUIET HOURS. SLEPT AT LONG INTERVALS. NO DISTRESS NOTED. NO CHANGES IN CONDITION THIS SHIFT. REMAINS CONFUSED TO SITUATION AND TIME. CALL LIGHT IN REACH.
[2018-09-08 08:37] VITALS: BP 113/65
--- NOTE | 2018-09-08 10:54 | NUR ---
THE PATIENT WAS LYING IN BED AND LOOKING AT A NEWSPAPER WHEN STAFF ENTERED HER ROOM. BED IS IN THE LOW POSITION WITH SIDERAILS X2 AND CALL LIGHT WITHIN REACH. THE PATIENT DEMONSTRATES APPROPRIATE USE OF A CALL LIGHT. THE PATIENT APPEARS COMFORTABLE WITH NO QUESTIONS OR CONCERNS AT THIS TIME.
--- NOTE | 2018-09-08 14:17 | NUR ---
PATIENT HAS BEEN ACCEPTED AND WILL DISCHARGE TO [facility] IN AM AT 10:00. WILL CONTINUE TO FOLLOW WITH PATIENT.
--- NOTE | 2018-09-08 17:42 | NUR ---
THE PATIENT IS AWAKE AND TALKING TO STAFF. SHE HAS NO QUESTIONS OR CONCERNS AT THIS TIME.
[2018-09-08 19:09] VITALS: BP 106/59
--- NOTE | 2018-09-08 19:41 | NUR ---
RESTING IN BED WITH RESPIRATIONS UNLABORED. NO DISTRESS NOTED. CALL LIGHT IN REACH.
--- NOTE | 2018-09-09 05:15 | NUR ---
QUIET HOURS. SLEPT LONG INTERVALS. NO ACUTE CHANGES IN CONDITION. NO ACUTE DISTRESS NOTED. CALL LIGHT IN REACH.
[2018-09-09 06:05] LABS: BASOPHILS 0.3 % (0-2); EOSINOPHILS 0.6 % (0-7); HEMATOCRIT 37.4 % (36.0-48.0); HEMOGLOBIN 12.7 g/dL (12-16); IMMATURE GRANULOCYTES 0.1 % (0-5); LYMPHOCYTES 29.1 % (15-50); MCH 33.8 pg (26.0-34.0); MCV 99.5 fL (80.0-100.0); MEAN PLATELET VOLUME 9.6 fL (7.4-10.4); MONOCYTES 9.4 % (2-11); NEUTROPHILS 60.5 % (40-80); PLATELET COUNT 277 10x3/uL (130-400); RBC 3.76 10x6/uL (4.00-5.40); RDW 13.9 % (11.5-14.5); WBC 7.3 10x3/uL (4.8-10.8)
[2018-09-09 06:19] LABS: CALCIUM 9.2 mg/dL (8.5-10.1); CREATININE - SERUM 0.8 mg/dL (0.6-1.3)
--- NOTE | 2018-09-09 08:15 | NUR ---
PT UP IN WHEELCHAIR AT BEDSIDE EATING BREAKFAST TOLERATING WELL CALL LIGHT IN REACH NO PROBLEMS WILL MONITER
--- NOTE | 2018-09-09 09:37 | NUR ---
PATIENT DISCHARGING TO [facility]IA [facility]. HER NEPHEW MAVERICK PERALTA HAS BEEN NOTIFIED. NO HOME HEALTH OR DME NEEDED AT THIS TIME. DR. GUADARRAMA 09/20/18 @ 11:00. PATIENT CHOICE FORMS AND IMFM FORMS SIGNED, COPY GIVEN TO PATIENT AND FILED IN CHART. DISCHARGE INSTRUCTIONS WITH [facility] FAXED TO SNF. PATIENT MOVING TO [place] WITH NEPHEW WHEN ABLE TO TRAVEL.
--- NOTE | 2018-09-09 11:00 | NUR ---
PT DISCHARGED TO [facility] VIA WHEELCHAIR WITH SECTION HAND REPORT CALLED PT TOLERATED WELL
== END 2018-09-09 13:01 | DRG 481 ==
LOC: D.REHAB 14:57
PROVIDERS: ADMIT Emergency Medicine; ATTEND Emergency Medicine
PROC: 0QH706Z Insertion of Intramedullary Internal Fixation Device into Left Upper Femur, Open Approach (ICD-10-PCS; principal; 2018-08-29)
DX: S72.142D Displaced intertrochanteric fracture of left femur, subsequent encounter for closed fracture with routine healing (principal); D62 Acute posthemorrhagic anemia; F05 Delirium due to known physiological condition; W19.XXXD Unspecified fall, subsequent encounter; R09.02 Hypoxemia; I95.9 Hypotension, unspecified; M85.80 Other specified disorders of bone density and structure, unspecified site